=== PATIENT | male | born 1995 | race Caucasian/White ===

== ENCOUNTER 2018-06-15 02:56 | Emergency (ER) | payer MEDICAID ==
[2018-06-15 03:06] VITALS: BMI 23.5
[2018-06-15] MEDS ORDERED: Albuterol-Ipratrop 3 mg / 0.5 (3 ml) UD IH STA (03:09)
[2018-06-15 03:11] VITALS: TEMP 99.1
--- NOTE | 2018-06-15 03:11 | ED PDOC ---
Arrival/HPI - General Time Seen by Provider: 06/15/18 02:57 Historian: Patient, Parent - History of Present Illness Narrative History of Present Illness (Text): 06/15/18 03:08 Cole Abbott is a 23 year old male, whose past medical history includes asthma, w ho presents to the Emergency department complaining of cough. Patient states he has been experiencing a persistent dry cough since yesterday with associated sore throat and congestion. Mother notes patient had a fever of 101F at home yesterday. Patient has not taken any medication at home. Patient denies any fever, chills, chest pain, nausea, vomiting, diarrhea, urinary symptoms, back pain, neck pain, headache, dizziness, or any other complaints. Symptom Onset: Gradual Symptom Course: Unchanged Activities at Onset: Light Context: Home Past Medical History - Provider Review Nursing Documentation Reviewed: Yes Family/Social History - Physician Review Nursing Documentation Reviewed: Yes Family/Social History: Unknown Family HX Allergies/Home Meds Allergies/Adverse Reactions: Allergies No Known Allergies Allergy (Verified 06/15/18 03:06) Review of Systems - Physician Review All systems were reviewed & negative as marked: Yes - Review of Systems Constitutional: Fevers Eyes: Normal ENT: Sore Throat, Sinus Congestion Respiratory: Cough Cardiovascular: Normal. absent: Chest Pain Gastrointestinal: Normal. absent: Abdominal Pain, Diarrhea, Nausea, Vomiting Genitourinary Male: Normal. absent: Dysuria, Frequency, Hematuria, Urinary Output Changes Musculoskeletal: Normal. absent: Back Pain, Neck Pain Skin: Normal. absent: Rash Neurological: Normal. absent: Headache, Dizziness Endocrine: Normal Hemo/Lymphatic: Normal Psychiatric: Normal Physical Exam Vital Signs Reviewed: Yes Temperature: Afebrile Blood Pressure: Normal Pulse: Regular Respiratory Rate: Normal Appearance: Positive for: Well-Appearing, Non-Toxic, Comfortable Pain Distress: None Mental Status: Positive for: Alert and Oriented X 3 - Systems Exam Head: Present: Atraumatic, Normocephalic Pupils: Present: PERRL Extroacular Muscles: Present: EOMI Conjunctiva: Present: Normal Ears: Present: Normal, NORMAL TM, Normal Canal. No: Erythema, TM Bulging, Flui d, TM Perf Mouth: Present: Moist Mucous Membranes Pharnyx: Present: ERYTHEMA (Erythema to posterior pharynx). No: EXUDATE, TONSILS ENLARGED, Peritonsilar Swelling, Uvular Deviation, Muffled/Hoarse Voice, Strider, Soft Palate/Uvular Edema Nose (External): Present: Atraumatic Nose (Internal): Present: Normal Inspection Neck: Present: Normal Range of Motion. No: Meningeal Signs, MIDLINE TENDERNESS, Paraspinal Tenderness Respiratory/Chest: Present: Wheezes (Slight expiratory wheeze in right lung field). No: Respiratory Distress, Accessory Muscle Use Cardiovascular: Present: Regular Rate and Rhythm, Normal S1, S2. No: Murmurs Abdomen: No: Tenderness, Distention, Peritoneal Signs Back: Present: Normal Inspection. No: CVA Tenderness, Midline Tenderness, Paraspinal Tenderness Upper Extremity: Present: Normal Inspection. No: Cyanosis, Edema Lower Extremity: Present: Normal Inspection. No: Edema Neurological: Present: GCS=15, CN II-XII Intact, Speech Normal Skin: Present: Warm, Dry, Normal Color. No: Rashes Psychiatric: Present: Alert, Oriented x 3, Normal Insight, Normal Concentration Medical Decision Making ED Course and Treatment: 06/15/18 03:08 Impression: 23 year old male complaining of cough, congestion, and sore throat since yesterday. Plan: -- Chest X-ray -- Rapid influenza -- Rapid strep -- Duoneb -- Reassess and disposition Prior Visits: Notes and results from previous visits were reviewed. Progress Notes: 06/15/18 04:10 Reviewed radiology, Chest X-ray shows no acute processes. Rapid influenza negative. Rapid strep negative. On re-evaluation, patient feels better and is in no acute distress. I have discussed the results and plan with the patient, who expresses understanding. Patient in agreement with plan to be discharged home. Patient is stable for discharge. Patient was instructed to follow up with physician or return if symptoms worsen or new concerning symptoms arise. - Lab Interpretations I have reviewed the lab results: Yes - RAD Interpretation [employer]: ED Physician - Scribe Statement The provider has reviewed the documentation as recorded by the Caren Mckeon Provider Scribe Attestation: All medical record entries made by the Scribe were at my direction and personally dictated by me. I have reviewed the chart and agree that the record accurately reflects my personal performance of the history, physical exam, medical decision making, and the department course for this patient. I have also personally directed, reviewed, and agree with the discharge instructions and disposition. Disposition/Present on Arrival - Present on Arrival Any Indicators Present on Arrival: No - Disposition Have Diagnosis and Disposition been Completed?: Yes Diagnosis: Bronchitis Disposition: HOME/ ROUTINE Disposition Time: 04:15 Patient Plan: Discharge Condition: GOOD Discharge Instructions (ExitCare): Acute Bronchitis, Adult (DC) Additional Instructions: Take meds as prescribed/drink plenty of liquids/follow up with your doctor this week Prescriptions: Albuterol 0.083% [Albuterol 0.083% Inhal Justine (2.5 mg/3 ml) UD] 3 ml IH Q4 PRN #1 pkg PRN Reason: Wheezing guaiFENesin/Dextromethorphan [guaiFENesin-DM] 5 ml PO Q6 PRN #8 oz PRN Reason: Cough Azithromycin [Zithromax] 250 mg PO DAILY #4 tab Referrals: Isabel Ayers MD [Primary Care Provider] - Follow up with primary Forms: SCHOOL NOTE, WORK NOTE
[2018-06-15] MEDS ORDERED: guaiFENesin-Codeine 100-10mg/5ml Syrup (5 ml) UD PO ONE (04:15)
[2018-06-15 04:29] VITALS: BP 112/72; PULSE 89; RESP 16; O2SAT 100
--- NOTE | 2018-06-15 09:37 | RAD ---
Date of service: 06/15/2018 HISTORY: Cough COMPARISON: No prior. FINDINGS: LUNGS: No active pulmonary disease. PLEURA: No significant pleural effusion identified, no pneumothorax apparent. CARDIOVASCULAR: No aortic atherosclerotic calcification present. Normal cardiac size. No pulmonary vascular congestion. OSSEOUS STRUCTURES: No significant abnormalities. VISUALIZED UPPER ABDOMEN: Normal. OTHER FINDINGS: None. IMPRESSION: No active disease.
== END 2018-06-15 04:30 | disposition home or self-care (01) ==
LOC: ED 02:56
DX: J40 Bronchitis, not specified as acute or chronic (principal)